=== PATIENT | male | born 1955 | race Caucasian/White ===

== ENCOUNTER → 2017-04-07 | Outpatient (CLI) | payer BC ==
--- NOTE | 2017-04-07 09:57 | XR ---
EXAMINATION TYPE: XR cervical spine comp DATE OF EXAM: 04/07/2017 COMPARISON: NONE HISTORY: Neck pain TECHNIQUE: Four views are submitted. FINDINGS: The odontoid is intact. There are no compression deformities. The prevertebral soft tissue structur es are within normal limits. Moderate to severe degenerative disc disease with hypertrophic change a t C5-C6 and mild bilateral foraminal encroachment IMPRESSION: 1. Moderate to severe degenerative disc disease with hypertrophic changes C5-C6. Posterior spondylosi s noted. Suspect bilateral foraminal encroachment..
--- NOTE | 2017-04-07 09:58 | XR ---
EXAM TYPE: LUMBAR SPINE X RAY SERIES COMPARISON: NONE HISTORY: Back pain TECHNIQUE: 3 views are submitted. FINDINGS: Alignment is anatomic. The pedicles are intact. The transverse processes are intact. There is no s pondylolysis or spondylolisthesis. Severe degenerative disc disease L5-S1 with arthropathy. IMPRESSION: 1. Severe degenerative disc disease L5-S1 with facet arthropathy.
== END | disposition home or self-care (01) ==
LOC: RADXRYALE 09:30
PROVIDERS: ATTEND Family Medicine
DX: M50.322 Other cervical disc degeneration at C5-C6 level (principal); M47.812 Spondylosis without myelopathy or radiculopathy, cervical region; M51.37 Other intervertebral disc degeneration, lumbosacral region; M46.96 Unspecified inflammatory spondylopathy, lumbar region
CPT/HCPCS: 72050; 72100

== ENCOUNTER → 2020-01-25 | Outpatient (CLI) | payer MEDICARE ==
--- NOTE | 2020-01-25 16:42 | MR ---
EXAMINATION TYPE: MR brain wo/w con DATE OF EXAM: 01/25/2020 COMPARISON: NONE HISTORY: 65-year-old male Tremor, shaking hands TECHNIQUE: Multiplanar, multisequence images of the brain and brainstem were acquired before and aft er administration of 11.5 mL IV Gadavist. Diffusion weighted imaging is performed. FINDINGS: No evidence for acute infarction, hemorrhage, mass, mass effect, midline shift, herniation, effacemen t of basal cisterns, or extra-axial fluid collection. No hydrocephalus. Ilkc-af-hwcokaxa cerebral cortical volume loss. Major intracranial flow voids are intact. T2/FLAIR weighted sequences show some bright spots or relating to parenchymal vessels. No white matte r signal abnormality is seen. Midline structures demonstrate normal morphology. The craniocervical junction is normal. Post contrast images demonstrate no evidence of pathologic enhancement. Dural venous sinuses are pat ent. Moderate to severe mucosal thickening ethmoid air cells and sphenoid sinuses. Mucous retention cysts measuring up to 2.2 cm along the floors of the maxillary sinuses. Globes are intact. IMPRESSION: 1. Age related mild to moderate cerebral cortical volume loss. No acute intracranial abnormality or e nhancing lesion seen. 2. Moderate to severe chronic ethmoid and sphenoid sinus disease. Additional mucosal retention cysts along the floors of the maxillary sinuses measuring up to 2.2 cm. If symptomatic, consider ENT referr al.
== END | disposition home or self-care (01) ==
LOC: RADMRIMAIN 07:25
PROVIDERS: ATTEND Family Medicine
DX: R93.0 Abnormal findings on diagnostic imaging of skull and head, not elsewhere classified (principal)
CPT/HCPCS: 70553; A9585

== ENCOUNTER 2024-03-03 16:17 | Emergency (ER) | payer MEDICARE ==
--- NOTE | 2024-03-03 17:27 | ED ---
Lower Extremity Injury HPI - General Chief Complaint: Extremity Injury, Lower Stated Complaint: foot injury Time Seen by Provider: 03/03/24 17:22 Source: patient, RN notes reviewed Mode of arrival: ambulatory Limitations: no limitations - History of Present Illness Initial Comments: 69-year-old male presenting with left foot injury x 3 hours ago. States he was walking into his pole [place] with the lights off when he accidentally bumped the outside of his left foot on a block of wood. He has been unable to walk since the injury. Denies other injuries. - Related Data Previous Rx's Medication Instructions Recorded Cephalexin [Keflex] 500 mg PO Q6HR #40 cap 05/04/15 Docusate [Colace] 100 mg PO DAILY #30 capsule 05/04/15 HYDROcodone/APAP 5-325MG [Yarnell 5] 1 each PO Q4HR PRN #20 tab 05/04/15 Acetaminophen-Codeine 300-30mg 1 tab PO Q4H PRN #20 tablet 03/03/24 [Tylenol #3] Allergies Allergy/AdvReac Type Severity Reaction Status Date / Time No Known Allergies Allergy Verified 03/03/24 16:59 Review of Systems ROS Statement: Those systems with pertinent positive or pertinent negative responses have been documented in the HPI. ROS Other: All systems not noted in ROS Statement are negative. Past Medical History Past Medical History: No Reported History History of Any Multi-Drug Resistant Organisms: None Reported Past Surgical History: Orthopedic Surgery Additional Past Surgical History / Comment(s): SHOULDER,KNEE, AND ANKLE SURGERY Past Anesthesia/Blood Transfusion Reactions: No Reported Reaction Past Psychological History: No Psychological Hx Reported Smoking Status: Never smoker Past Alcohol Use History: None Reported Past Drug Use History: None Reported General Exam Limitations: no limitations General appearance: alert, in no apparent distress Head exam: Present: atraumatic, normocephalic, normal inspection Left Lower Leg exam: Present: normal inspection, full ROM. Absent: tenderness, swelling Ankle exam: Present: normal inspection, full ROM. Absent: tenderness, swelling Foot/Toe exam: Present: normal inspection, full ROM, tenderness (Tenderness along the lateral aspect of left foot). Absent: swelling, abrasion, laceration Neurovascular tendon exam: Present: no vascular compromise. Absent: pulse deficit, abnormal cap refill, sensory deficit Neurological exam: Present: alert, oriented X3 Psychiatric exam: Present: normal affect, normal mood Skin exam: Present: warm, dry, intact, normal color. Absent: rash Course Vital Signs 03/03/24 03/03/24 16:52 19:11 Temperature 98 F 98.1 F Pulse Rate 88 82 Respiratory 20 18 Rate Blood Pressure 145/72 139/77 O2 Sat by Pulse 97 97 Oximetry Procedures - Orthopedic Splinting/Casting Injury #1 Side: left Lower Extremity Injury Location: foot Lower Extremity Immobilizer: stirrup splint Other Orthopedic Equipment: crutches Additional Comments: Neurovascularly intact status post procedure Medical Decision Making - Medical Decision Making Was pt. sent in by a medical professional or institution (, [place], [facility], urgent care, hospital, or care home...) When possible be specific @ -No Did you speak to anyone other than the patient for history (EMS, parent, family, police, friend...)? What history was obtained from this source @ -No Did you review nursing and triage notes (agree or disagree)? Why? @ -I reviewed and agree with nursing and triage notes Were old charts reviewed (outside hosp., previous admission, EMS record, old EKG, old radiological studies, urgent care reports/EKG's, care home records)? Report findings @ -No old charts were reviewed Differential Diagnosis (chest pain, altered mental status, abdominal pain women, abdominal pain men, vaginal bleeding, weakness, fever, dyspnea, syncope, headache, dizziness, GI bleed, back pain, seizure, CVA, palpatations, mental health, musculoskeletal)? @ -Differential Musculoskeletal Muscular strain, contusion, ligament sprain, fracture, arthritis, septic arthritis, bursitis, cellulitis, muscle spasm, nerve compression, DVT, arterial occlusion, herpes zoster, electrolyte abnormality, tumor.... This is not meant to be in all inclusive list EKG interpreted by me (3pts min.). @ -None X-rays interpreted by me (1pt min.). @ -X-ray reveals lucency through base of fifth metatarsal CT interpreted by me (1pt min.). @ -None done U/S interpreted by me (1pt. min.). @ -None done What testing was considered but not performed or refused? (CT, X-rays, U/S, labs)? Why? @ -None What meds were considered but not given or refused? Why? @ -None Did you discuss the management of the patient with other professionals (professionals i.e. DrJabier, PA, [facility], lab, RT, psych nurse, social worker assistant, rough rib grader, teacher, commanding officer traffic division, case preparer and liner)? Give summary @ -No Was smoking cessation discussed for >3mins.? @ -No Was critical care preformed (if so, how long)? @ -No Were there social determinants of health that impacted care today? How? (Homelessness, low income, unemployed, alcoholism, drug addiction, transportation, low edu. Level, literacy, decrease access to med. care, half-way, rehab)? @ -No Was there de-escalation of care discussed even if they declined (Discuss DNR or withdrawal of care, Hospice)? DNR status @ -No What co-morbidities impacted this encounter? (DM, HTN, Smoking, COPD, CAD, Cancer, CVA, ARF, Chemo, Hep., AIDS, mental health diagnosis, sleep apnea, morbid obesity)? @ -None Was patient admitted / discharged? Hospital course, mention meds given and route, prescriptions, significant lab abnormalities, going to OR and other pertinent info. @ -Discharge. This is a 69-year-old male presenting with left foot injury earlier today. States he was walking in the dark and accidentally hit his foot on a wooden block. Unable to weight-bear. Neurovascularly intact. X-ray reveals lucency through base of fifth metatarsal, this correlates with patient's location of pain. Patient updated on x-ray findings. Stirrup splint placed to left foot. Supportive care discussed as well as return precautions. Advised to follow-up with orthopedics in 1 to 3 days for reevaluation. Patient states he has an established orthopedic doctor he will follow-up with. Case was discussed with my ED attending Dr. Caraballo. Patient discharged in stable condition with analgesics. Maps reviewed. Undiagnosed new problem with uncertain prognosis? @ -No Drug Therapy requiring intensive monitoring for toxicity (Heparin, Nitro, Insulin, Cardizem)? @ -No Were any procedures done? @ -Yes, stirrup splint to left foot Diagnosis/symptom? @ -Left fifth metatarsal fracture Acute, or Chronic, or Acute on Chronic? @ -Acute Uncomplicated (without systemic symptoms) or Complicated (systemic symptoms)? @ -Uncomplicated Side effects of treatment? @ -No Exacerbation, Progression, or Severe Exacerbation? @ -No Poses a threat to life or bodily function? How? (Chest pain, [place], [place], pneumonia, PE, COPD, DKA, ARF, appy, cholecystitis, CVA, Diverticulitis, Homicidal, Suicidal, threat to staff... and all critical care pts) @ -No Disposition Clinical Impression: Closed nondisplaced fracture of fifth left metatarsal bone Disposition: HOME SELF-CARE Condition: Stable Instructions (If sedation given, give patient instructions): Foot Fracture in Adults (ED) Additional Instructions: Keep splint dry. Do not bear weight on left foot. Follow-up with orthopedics within the week. Take Tylenol threes as needed for pain. Please return to the Emergency Department if symptoms worsen or any other concerns. Prescriptions: Acetaminophen-Codeine 300-30mg [Tylenol #3] 1 tab PO Q4H PRN #20 tablet PRN Reason: pain Is patient prescribed a controlled substance at d/c from ED?: Yes When asked, does pt state using other controlled substances?: No If prescribed controlled substance>3 days was MAPS reviewed?: Yes If opioid is for acute pain is fill amount 7 days or less?: Yes Referrals: Mac Juárez DO [Primary Care Provider] - 1-2 days Time of Disposition: 18:52
--- NOTE | 2024-03-03 17:56 | XR ---
EXAMINATION TYPE: XR foot complete LT DATE OF EXAM: 03/03/2024 5:51 PM CLINICAL INDICATION: Male, 69 years old with history of left foot injury; H COMPARISON: Nonee TECHNIQUE: XR foot complete LT examined in the AP, oblique, and lateral projections. FINDINGS: . Lucency through the base of the fifth metatarsal. Mild multifocal degeneration changes with joint spa ce and osteophyte formation. IMPRESSION: 1. Lucency through the base of the fifth metatarsal does not look exactly like an acute fracture cor relate with pain. 2. Mild degeneration changes throughout the joints of the foot. [facility], , 03/03/2024 5:53 PM
[2024-03-03] MEDS: Acetaminophen-Codeine 300-30mg TAB PO STA (18:37)
[2024-03-03] MEDS: ACET/COD 300 MG/30 MG STARTER PACK 6 TAB BTL PO STA (18:59)
[2024-03-03 19:12] VITALS: BP 139/77; PULSE 82; RESP 18; TEMP 98.1
== END 2024-03-03 19:12 | disposition home or self-care (01) ==
LOC: EC 16:17
CPT/HCPCS: 29515; 99283

== ENCOUNTER → 2024-03-14 | Outpatient (CLI) | payer MEDICARE ==
--- NOTE | 2024-03-14 14:56 | CT ---
EXAMINATION TYPE: CT chest wo con DATE OF EXAM: 03/14/2024 COMPARISON: None HISTORY: Chronic cough, SOB CT DLP: 620.[address] of the chest was performed with lung and mediastinal window settings submitted. The la ck of contrast limits evaluation of the vascular, mediastinal and parenchymal structures including th e upper abdomen. LUNGS: The lungs are clear and free of infiltrate. No atelectasis. No pulmonary nodule or mass is de tected. Small calcified granuloma right upper lobe. No pleural effusion. No CT evidence of intersti tial lung disease. MEDIASTINUM/JOHN: Calcified hilar lymph nodes seen greatest on the left. Thoracic aorta is of normal caliber with limited evaluation given lack of contrast. The heart is enlarged. No evidence for med iastinal mass. No lymph nodes greater than 1cm. UPPER ABDOMEN: No significant abnormality is seen. Calcified gallstones are noted within the gallbla dder lumen. OTHER: No significant other abnormality. IMPRESSION: 1. Evidence of remote granulomatous change. [facility], , 03/14/2024 2:53 PM
== END | disposition home or self-care (01) ==
LOC: RADCTMAIN 07:55
PROVIDERS: ATTEND Family Medicine
DX: L92.9 Granulomatous disorder of the skin and subcutaneous tissue, unspecified (principal); R06.02 Shortness of breath; R05.3 Chronic cough; Z57.2 Occupational exposure to dust
CPT/HCPCS: 71250

== ENCOUNTER → 2024-03-25 | Outpatient (CLI) | payer MEDICARE ==
--- NOTE | 2024-03-25 12:17 | XR ---
EXAMINATION TYPE: XR chest 2V DATE OF EXAM: 03/25/2024 11:57 AM COMPARISON: Chest radiographs from 03/25/2024 CLINICAL INDICATION: Male, 69 years old with history of R059,[id number] COUGH,SOB; YCH TECHNIQUE: XR chest 2V Frontal and lateral views of the chest. FINDINGS: Lungs/Pleura: There is no evidence of pleural effusion, focal consolidation, or pneumothorax. Pulmonary vascularity: Unremarkable. Heart/mediastinum: Cardiomediastinal silhouette is unremarkable. Musculoskeletal: No acute osseous pathology. Other findings: None IMPRESSION: No acute cardiopulmonary disease/process. [facility], , 03/25/2024 12:15 PM
== END | disposition home or self-care (01) ==
LOC: RADXRYALE 11:49
PROVIDERS: ATTEND Family Medicine
DX: R05.9 Cough, unspecified (principal); R06.02 Shortness of breath
CPT/HCPCS: 71046

== ENCOUNTER → 2024-04-28 | Outpatient (CLI) | payer MEDICARE | LOC: CPPFTMAIN 13:08 | PROVIDERS: ATTEND Internal Medicine | DX: R06.00 Dyspnea, unspecified (principal) | CPT/HCPCS: 94060; 94726; 94729 ==

== ENCOUNTER → 2024-07-13 | Outpatient (CLI) | payer MEDICARE ==
[2024-07-13 15:09] LABS: African American GFR (CKD) >90 (>60 ml/min/1.73 sqM); Blood Urea Nitrogen 17 mg/dL (9-20); Non-African American GFR(CKD) >90 (>60 ml/min/1.73 sqM)
--- NOTE | 2024-07-13 15:51 | CT ---
EXAMINATION TYPE: CT angio chest DATE OF EXAM: 07/13/2024 COMPARISON: CT chest 03/14/2024 CLINICAL INDICATION: Male, 69 years old with history of R55 SYNCOPE AND COLLAPSE; PHH, Syncope and c ollapse. TECHNIQUE: CTA scan of the thorax is performed with IV Contrast, patient injected with 100 ml mL of Isovue 370, pulmonary embolism protocol. MIP images are created and reviewed. 3-D postprocessing was performed. CT DLP: 547.[address] CTDI: mGy Automated exposure control for dose reduction was used. FINDINGS: LUNGS: The lungs are grossly clear, there is no concerning parenchymal mass or nodule identified. The re are multiple stable calcified granulomas and some 5 mm nodules indicating prior granulomatous dise ase exposure There is no pleural effusion or pneumothorax seen. The tracheobronchial tree is patent . MEDIASTINUM: There is satisfactory enhancement of the pulmonary artery and its branches, there is no CT evidence for pulmonary embolism. There are no greater than 1 cm hilar or mediastinal lymph nodes. No pericardial effusion is seen. OTHER: Cholelithiasis. IMPRESSION: NO EVIDENCE OF PULMONARY EMBOLISM. 2. NO ACUTE CARDIOPULMONARY DISEASE. 3. PRIOR GRANULOMATOUS DISEASE EXPOSURE. 4. Cholelithiasis. [facility], , 07/13/2024 3:49 PM
== END | disposition home or self-care (01) ==
LOC: RADCTMAIN 14:15
PROVIDERS: ATTEND Internal Medicine
DX: K80.20 Calculus of gallbladder without cholecystitis without obstruction (principal); R06.02 Shortness of breath; J84.10 Pulmonary fibrosis, unspecified
CPT/HCPCS: 82565; 84520; 71275; 36415; Q9967

== ENCOUNTER → 2024-07-20 | Outpatient (CLI) | payer MEDICARE ==
--- NOTE | 2024-07-20 14:27 | CT ---
EXAMINATION TYPE: CT sinus wo con DATE OF EXAM: 07/20/2024 COMPARISON: None CLINICAL INDICATION: Male, 69 years old with history of R09.82 sinusitis; PHH, Sinusitis. TECHNIQUE: CT scan of the sinuses is performed without contrast, axial images are obtained, coronal r eformatted images are also reviewed. CT DLP: mGycm CT CTDI: mGy Automated exposure control for dose reduction was used. FINDINGS: There is mild mucosal thickening in the upper mucous retention cyst in the right maxillary sinus mode rate chronic right maxillary sinusitis. Remaining paranasal sinuses are well aerated. There are no air-fluid levels to suggest acute sinusitis. The ostiomeatal complexes are patent bilaterally. Intraorbital contents are normal symmetric. Mastoid air cells and middle ear cavities are well aerated. The osseous structures are intact. IMPRESSION: Moderate chronic inflammatory change in the right maxillary sinus. The remaining paranasal sinuses ar e well aerated and the ostiomeatal complexes are patent [facility], , 07/20/2024 2:25 PM
== END | disposition home or self-care (01) ==
LOC: RADCTMAIN 13:29
PROVIDERS: ATTEND Internal Medicine
DX: J34.1 Cyst and mucocele of nose and nasal sinus (principal); R09.82 Postnasal drip; J32.0 Chronic maxillary sinusitis
CPT/HCPCS: 70486